=== PATIENT | female | born 2000 | race Caucasian/White ===

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

== ENCOUNTER 2018-02-11 00:20 | Emergency (ER) | payer OTHER ==
[~2018-02-11] VITALS: Ht 154.9 cm; Wt 104.3 kg
[~2018-02-11 00:20] MED LIST changes: +DICYCLOMINE HYD10 MG PO
[2018-02-11 00:23] VITALS: BP 133/85
[2018-02-11] MEDS ORDERED: ONDANSETRON4 MG SL (00:33)
[2018-02-11 01:01] LABS: BASO % 0.2 % (0.0-1.0); EOS % 0.2 % (1.0-4.0); HEMATOCRIT 41.1 % (37.0-47.0); HEMOGLOBIN 12.6 g/dl (12.0-16.0); LYMPH # 1.2 10*3/uL (1.3-4.4); LYMPH % 7.9 % (27.0-41.0); MEAN CELL VOLUME 80.1 fl (81.0-99.0); MEAN CORPUSCULAR HGB 24.6 pg (27.0-31.0); MEAN CORPUSCULAR HGB CONC 30.7 g/dl (33.0-37.0); MEAN PLATELET VOLUME 10.2 fl (9.6-12.3); MONO # 0.7 10*3/uL (0.1-1.0); MONO % 4.8 % (3.0-9.0); NEUT # 13.1 10*3/uL (2.3-7.9); NEUT % 86.7 % (47.0-73.0); PLATELET COUNT AUTOMATED 288 10*3/uL (130-400); RED BLOOD COUNT 5.13 10*6/uL (4.10-5.10); WHITE BLOOD COUNT 15.1 10*3/uL (4.8-10.8)
[2018-02-11 01:16] LABS: ALBUMIN 3.6 gm/dl (3.1-4.5); ALKALINE PHOSPHATASE 87 U/L (45-117); BUN 18 mg/dl (7-24); CHLORIDE 107 mmol/L (98-107); CREATININE 0.76 mg/dL (0.55-1.02); LIPASE 101 U/L (73-393); POTASSIUM 3.9 mmol/L (3.5-5.1); SGOT/AST 15 IU/L (3-35); SGPT/ALT 29 U/L (12-78); SODIUM 137 mmol/L (136-145); TOTAL PROTEIN 8.1 gm/dL (6.4-8.2)
[2018-02-11 01:18] LABS: BETA-HCG, QUANT < 1.0 mIU/mL (1-3)
== END 2018-02-11 02:51 | disposition home or self-care (01) ==
LOC: ED 00:20
PROVIDERS: Student in an Organized Health Care Education/Training Program
DX: R11.2 Nausea with vomiting, unspecified (principal); R19.7 Diarrhea, unspecified; Z79.899 Other long term (current) drug therapy

== ENCOUNTER 2019-04-17 18:13 | Emergency (ER) | payer OTHER ==
[~2019-04-17] VITALS: Ht 157.4 cm; Wt 113.4 kg
[~2019-04-17 18:13] MED LIST changes: +ONDANSETRON4 MG SL
[2019-04-17 18:24] VITALS: BP 155/96
[2019-04-17] MEDS ORDERED: AMOXICILLIN500 M3 PO (19:04)
== END 2019-04-17 19:05 | disposition home or self-care (01) ==
LOC: ED 18:13
DX: J35.8 Other chronic diseases of tonsils and adenoids (principal)

== ENCOUNTER → 2019-06-24 | Outpatient (CLI) | payer OTHER ==
[~2019-06-24] MED LIST changes: +AUGMENTIN 875-875 MG PO
[2019-06-24 12:30] LABS: BASO % 0.4 % (0.0-1.0); EOS # 0.1 10*3/uL (0.0-0.4); EOS % 0.5 % (1.0-4.0); HEMATOCRIT 38.3 % (37.0-47.0); LYMPH # 2.4 10*3/uL (1.3-4.4); LYMPH % 23.8 % (27.0-41.0); MEAN CELL VOLUME 82.4 fl (81.0-99.0); MEAN CORPUSCULAR HGB 25.6 pg (27.0-31.0); MEAN CORPUSCULAR HGB CONC 31.1 g/dl (33.0-37.0); MEAN PLATELET VOLUME 10.4 fl (9.6-12.3); MONO # 0.5 10*3/uL (0.1-1.0); MONO % 4.7 % (3.0-9.0); PLATELET COUNT AUTOMATED 283 10*3/uL (130-400); RED BLOOD COUNT 4.65 10*6/uL (4.10-5.10); RED CELL DISTRI WIDTH 14.6 % (0-14.5)
[2019-06-24 13:01] LABS: THYROID STIM HORMONE (HS) 1.99 uIU/ml (0.358-4.75)
[2019-06-25 04:05] LABS: FOLLICLE STIMULATING HORMONE 5.8 mIU/mL (.); LUTEINIZING HORMONE 8.5 mIU/mL (.); PROLACTIN 10.1 ng/mL (4.8-23.3)
[2019-06-26 00:05] LABS: TESTOSTERONE FREE, (DIRECT) 3.3 pg/mL (0.0-4.2)
== END | disposition home or self-care (01) ==
LOC: LAB 11:11
PROVIDERS: Nurse Practitioner Women's Health
DX: N93.9 Abnormal uterine and vaginal bleeding, unspecified (principal)

== ENCOUNTER 2019-06-29 17:37 | Emergency (ER) | payer OTHER ==
[~2019-06-29] VITALS: Ht 157.4 cm; Wt 127.0 kg
[~2019-06-29 17:37] MED LIST changes: -AUGMENTIN 875-875 MG PO
[2019-06-29 17:43] VITALS: BP 135/71
[2019-06-29 19:15] LABS: BASO % 0.3 % (0.0-1.0); EOS # 0.1 10*3/uL (0.0-0.4); EOS % 0.7 % (1.0-4.0); HEMATOCRIT 39.2 % (37.0-47.0); LYMPH # 2.7 10*3/uL (1.3-4.4); LYMPH % 27.7 % (27.0-41.0); MEAN CELL VOLUME 81.5 fl (81.0-99.0); MEAN CORPUSCULAR HGB 25.2 pg (27.0-31.0); MEAN CORPUSCULAR HGB CONC 30.9 g/dl (33.0-37.0); MEAN PLATELET VOLUME 10.4 fl (9.6-12.3); MONO # 0.4 10*3/uL (0.1-1.0); MONO % 4.3 % (3.0-9.0); NEUT # 6.5 10*3/uL (2.3-7.9); NEUT % 66.5 % (47.0-73.0); PLATELET COUNT AUTOMATED 299 10*3/uL (130-400); RED BLOOD COUNT 4.81 10*6/uL (4.10-5.10); RED CELL DISTRI WIDTH 14.6 % (0-14.5); WHITE BLOOD COUNT 9.7 10*3/uL (4.8-10.8)
[2019-06-29 19:39] LABS: ALBUMIN 3.4 gm/dl (3.1-4.5); ALKALINE PHOSPHATASE 74 U/L (45-117); BUN 15 mg/dl (7-24); CHLORIDE 108 mmol/L (98-107); CREATININE 0.67 mg/dL (0.55-1.02); SGOT/AST 15 IU/L (3-35); SGPT/ALT 25 U/L (12-78); SODIUM 140 mmol/L (136-145); TOTAL PROTEIN 7.6 gm/dL (6.4-8.2)
[2019-06-29] MEDS ORDERED: AUGMENTIN 875-875 MG PO (22:25)
== END 2019-06-29 22:39 | disposition home or self-care (01) ==
LOC: ED 17:37
PROVIDERS: Nurse Practitioner Family
DX: J32.0 Chronic maxillary sinusitis (principal)

== ENCOUNTER 2023-04-19 07:58 | Emergency (ER) | payer SELFPAY ==
[~2023-04-19] VITALS: Ht 157.4 cm; Wt 136.1 kg
[~2023-04-19 07:58] MED LIST changes: +AUGMENTIN 875-875 MG PO
[2023-04-19 08:15] VITALS: BP 131/76
[2023-04-19] MEDS ORDERED: Tetracaine Hydrochloride 0.5% 4 ML BOT OPH ONE (08:30)
[2023-04-19] MEDS ORDERED: FLUORESCEIN SODIUM 1 MG STRIP OPH ONE (08:30)
== END 2023-04-19 10:25 | disposition home or self-care (01) ==
LOC: ED 07:58
DX: H16.002 Unspecified corneal ulcer, left eye (principal); Z98.890 Other specified postprocedural states

== ENCOUNTER 2023-08-03 18:35 | Inpatient (IN) | payer SELFPAY ==
[~2023-08-03] VITALS: Ht 157.4 cm; Wt 174.8 kg
[2023-08-03 18:44] VITALS: BP 143/78
[2023-08-03] MEDS ORDERED: IBUPROFEN 800 MG TAB PO ONE (18:55)
[2023-08-03] MEDS ORDERED: IOHEXOL 350 MG/ML 100 ML VIAL IV ONE ×2 (19:05→21:19)
[2023-08-03] MEDS ORDERED: SODIUM CHLORIDE 0.9% 100 ML BAG IV ONE (19:05)
[2023-08-03 19:20] LABS: BASO % 0.3 % (0.0-1.0); EOS # 0.1 10*3/uL (0.0-0.4); EOS % 0.7 % (1.0-4.0); HEMATOCRIT 34.7 % (37.0-47.0); LYMPH # 1.2 10*3/uL (1.3-4.4); LYMPH % 9.7 % (27.0-41.0); MEAN CELL VOLUME 75.9 fl (81.0-99.0); MEAN CORPUSCULAR HGB 23.2 pg (27.0-31.0); MEAN CORPUSCULAR HGB CONC 30.5 g/dl (33.0-37.0); MEAN PLATELET VOLUME 10.1 fl (9.6-12.3); MONO # 0.8 10*3/uL (0.1-1.0); MONO % 6.3 % (3.0-9.0); NEUT # 9.8 10*3/uL (2.3-7.9); NEUT % 82.5 % (47.0-73.0); PLATELET COUNT AUTOMATED 282 10*3/uL (130-400); RED BLOOD COUNT 4.57 10*6/uL (4.10-5.10); WHITE BLOOD COUNT 11.8 10*3/uL (4.8-10.8)
[2023-08-03 19:46] LABS: ALKALINE PHOSPHATASE 72 U/L (46-116); BUN 9 mg/dl (9-23); CHLORIDE 104 mmol/L (98-107); POTASSIUM 3.6 mmol/L (3.4-5.1); SGPT/ALT 16 U/L (5-49); TOTAL PROTEIN 7.6 gm/dL (6.0-8.0)
[2023-08-03 20:40] LABS: BILIRUBIN 2+ (Negative); BLOOD 2+ (Negative); CLARITY Turbid (Clear); COLOR Dark Yellow (Yellow); GLUCOSE Negative (Negative); KETONE 1+ (Negative); LEUKO ESTERASE 1+ (Negative); NITRITE Negative (Negative); PH 5.5 (4.5-8.0); SPECIFIC GRAVITY >= 1.030 (1.001-1.030)
[2023-08-03 21:03] LABS: BACTERIA 2+; EPITHELIAL CELLS 21-30; MUCOUS 1+; RBC 16-20 rbc/hpf (0-2)
[2023-08-03] MEDS ORDERED: SODIUM CHLORIDE 0.9% 100 ML IV ONE (21:19)
[2023-08-03 21:44] VITALS: BP 122/57
[2023-08-03 23:38] VITALS: BP 123/68
[2023-08-03] MEDS ORDERED: LEVOFLOXACIN 150 ML IV ONE (23:50)
[2023-08-04] MEDS ORDERED: Dexamethasone Sodium Phospha 4 MG/ML VIAL IV ONE (00:15)
[2023-08-04] MEDS ORDERED: ACETAMINOPHEN 325 MG TAB PO PRN (00:40)
[2023-08-04] MEDS ORDERED: BISACODYL 5 MG TAB PO PRN (00:40)
[2023-08-04] MEDS ORDERED: Magnesium Hydroxide 30 ML UDC PO PRN (00:40)
[2023-08-04] MEDS ORDERED: BISACODYL 10 MG SUPP R PRN (00:40)
[2023-08-04] MEDS ORDERED: ACETAMINOPHEN 650 MG SUPP R PRN (00:40)
[2023-08-04] MEDS ORDERED: Ondansetron Hydrochloride 4 MG/2 ML VIAL IV PRN (00:40)
[2023-08-04] MEDS ORDERED: SODIUM CHLORIDE 0.9% 1,000 ML IV SCH (01:00)
[2023-08-04] MEDS ORDERED: Albuterol Sulf/Ipratropium 3 ML VIAL NEB PRN (01:20)
[2023-08-04 01:59] VITALS: BP 129/71
[2023-08-04 05:34] VITALS: BP 143/82
[2023-08-04 05:34] LABS: BUN 10 mg/dl (9-23); CHLORIDE 106 mmol/L (98-107); FREE T4 1.21 ng/dl (0.89-1.76); POTASSIUM 4.2 mmol/L (3.4-5.1); VITAMIN D, 25-HYDROXY 7.6 ng/mL (30-100)
[2023-08-04 06:03] LABS: BASO % 0.3 % (0.0-1.0); EOS % 0.2 % (1.0-4.0); HEMATOCRIT 34.6 % (37.0-47.0); LYMPH # 0.8 10*3/uL (1.3-4.4); LYMPH % 9.4 % (27.0-41.0); MEAN CELL VOLUME 75.7 fl (81.0-99.0); MEAN CORPUSCULAR HGB 23.4 pg (27.0-31.0); MEAN CORPUSCULAR HGB CONC 30.9 g/dl (33.0-37.0); MEAN PLATELET VOLUME 9.9 fl (9.6-12.3); MONO # 0.4 10*3/uL (0.1-1.0); MONO % 4.1 % (3.0-9.0); NEUT # 7.3 10*3/uL (2.3-7.9); PLATELET COUNT AUTOMATED 245 10*3/uL (130-400); RED BLOOD COUNT 4.57 10*6/uL (4.10-5.10); RED CELL DISTRI WIDTH 17.2 % (0-14.5); WHITE BLOOD COUNT 8.6 10*3/uL (4.8-10.8)
[2023-08-04 08:01] VITALS: BP 122/67
[2023-08-04] MEDS ORDERED: BLINK TEARS15 ML INTRAOC (08:08)
[2023-08-04] MEDS ORDERED: [UNRECOGNIZED DRUG - OTHER] INTRAOC (08:12)
[2023-08-04] MEDS ORDERED: GUAIFENESIN 600 MG TAB ER PO SCH (10:00)
[2023-08-04] MEDS ORDERED: Enoxaparin Sodium 40 MG/0.4 ML SYR SC SCH (10:00)
[2023-08-04] MEDS ORDERED: ERGOCALCIFEROL 50,000 IU CAP (1.25 MG) PO SCH (10:00)
[2023-08-04 12:00] VITALS: BP 122/76
[2023-08-04 16:00] VITALS: BP 137/91
[2023-08-04] MEDS ORDERED: Menthol/Zinc Oxide 4 GM THIN T SCH (18:00)
[2023-08-04 20:00] VITALS: BP 136/85
[2023-08-04] MEDS ORDERED: methylPREDNISolone sod succ 40 MG VIAL IV SCH (22:00)
[2023-08-05] VITALS: BP 132/85
[2023-08-05 06:16] LABS: BASO % 0.4 % (0.0-1.0); EOS % 0.3 % (1.0-4.0); HEMATOCRIT 34.9 % (37.0-47.0); LYMPH # 1.3 10*3/uL (1.3-4.4); LYMPH % 16.1 % (27.0-41.0); MEAN CELL VOLUME 77.7 fl (81.0-99.0); MEAN CORPUSCULAR HGB 22.7 pg (27.0-31.0); MEAN CORPUSCULAR HGB CONC 29.2 g/dl (33.0-37.0); MEAN PLATELET VOLUME 10.2 fl (9.6-12.3); MONO # 0.3 10*3/uL (0.1-1.0); MONO % 3.3 % (3.0-9.0); NEUT # 6.1 10*3/uL (2.3-7.9); NEUT % 78.1 % (47.0-73.0); PLATELET COUNT AUTOMATED 315 10*3/uL (130-400); RED BLOOD COUNT 4.49 10*6/uL (4.10-5.10); RED CELL DISTRI WIDTH 17.2 % (0-14.5); WHITE BLOOD COUNT 7.8 10*3/uL (4.8-10.8)
[2023-08-05 06:42] LABS: BUN 11 mg/dl (9-23); CHLORIDE 108 mmol/L (98-107)
[2023-08-05 06:44] LABS: POTASSIUM 4.5 mmol/L (3.4-5.1)
[2023-08-05 08:00] VITALS: BP 125/77
[2023-08-05] MEDS ORDERED: AZITHROMYCIN 250 ML IV SCH (10:00)
[2023-08-05] MEDS ORDERED: Ceftriaxone Sodium 1 GM in SYRINGE INFUSION 10 ML IV SCH (10:00)
[2023-08-05] MEDS ORDERED: MUCINEX1200 M1 PO (11:05)
[2023-08-05] MEDS ORDERED: VITAMIN D350 MCG PO (11:05)
[2023-08-05] MEDS ORDERED: ZITHROMAX250 MG PO (11:05)
[2023-08-05 12:00] VITALS: BP 126/76
== END 2023-08-05 12:59 | disposition home or self-care (01) | DRG 871 ==
LOC: ED 18:35 → EDHOLD 08-04 00:27 → 4E 08-04 00:27 → EDHOLD 08-04 00:44 → 4E 08-04 08:43
PROVIDERS: Physician Assistant Medical; Student in an Organized Health Care Education/Training Program; ADMIT Student in an Organized Health Care Education/Training Program; ATTEND Student in an Organized Health Care Education/Training Program
PROC: 05HC33Z Insertion of Infusion Device into Left Basilic Vein, Percutaneous Approach (ICD-10-PCS; principal; 2023-08-04)
PROC: B54NZZA Ultrasonography of Left Upper Extremity Veins, Guidance (ICD-10-PCS; 2023-08-04)
DX: A41.9 Sepsis, unspecified organism (principal); J15.69 Pneumonia due to other Gram-negative bacteria; J96.01 Acute respiratory failure with hypoxia; N30.01 Acute cystitis with hematuria; D50.9 Iron deficiency anemia, unspecified; R65.20 Severe sepsis without septic shock; E28.2 Polycystic ovarian syndrome

== ENCOUNTER 2024-01-21 14:57 | Emergency (ER) | payer SELFPAY ==
[~2024-01-21] VITALS: Ht 152.4 cm; Wt 149.7 kg
[~2024-01-21 14:57] MED LIST changes: +AMOX-CLAV 875-1 EACH PO; +BLINK TEARS15 ML INTRAOC; +FLONASE ALLERG9.9 ML NAS; +MUCINEX1200 M1 PO; +VITAMIN D350 MCG PO; +ZITHROMAX250 MG PO; +[UNRECOGNIZED DRUG - OTHER] INTRAOC
[2024-01-21 15:10] VITALS: BP 135/81
[2024-01-21] MEDS ORDERED: PREDNISONE20 M1 PO (16:39)
[2024-01-21] MEDS ORDERED: AVPAK AZITHROM250 M1 PO (16:39)
[2024-01-21] MEDS ORDERED: methylPREDNISolone sod succ 125 MG VIAL IM ONE (16:40)
[2024-01-21] MEDS ORDERED: AZITHROMYCIN 250 MG TAB PO ONE (16:40)
== END 2024-01-21 16:48 | disposition home or self-care (01) ==
LOC: ED 14:57
DX: J40 Bronchitis, not specified as acute or chronic (principal); Z20.822 Contact with and (suspected) exposure to COVID-19; D64.9 Anemia, unspecified; Z98.890 Other specified postprocedural states